=== PATIENT | female | born 2000 | race Caucasian/White ===

== ENCOUNTER 2023-09-30 23:36 | Emergency (ER) | payer OTHER ==
[2023-09-30 23:41] VITALS: BP 130/80; O2SAT 98
[2023-09-30 23:57] LABS: BILIRUBIN,URINE NEGATIVE (NEGATIVE); GLUCOSE, URINE (UA) NEGATIVE (NEGATIVE); KETONES,URINE (UA) NEGATIVE (NEGATIVE); LEUKOCYTE ESTERASE, URINE SMALL (NEGATIVE); NITRITE,URINE NEGATIVE (NEGATIVE); OCCULT BLOOD,URINE LARGE (NEGATIVE); PROTEIN,URINE 100 mg/dL (NEGATIVE); UROBILINOGEN,URINE 0.2 (NORMAL) E.U./dL (NORMAL)
[2023-09-30 23:59] LABS: CLARITY,URINE CLOUDY (CLEAR); HCG UR QUAL NEGATIVE
[2023-10-01] LABS: BACTERIA,URINE Rare /HPF (None Seen); RBC,URINE TNTC /HPF (0-5); SQUAMOUS EPITHELIAL CELL,UR NONE SEEN (<= Few)
--- NOTE | 2023-10-01 00:22 | ED Physician Documentation ---
PD HPI FEMALE - Stated complaint Stated Complaint: - Chief complaint Chief Complaint: UTI - History obtained from History obtained from: Patient - Additional information Additional information: HPI from patient. Patient complains of sudden onset of hematuria approximately 2 hours [employer]. This is associated with dysuria, urinary urgency, and sensation of incomplete voiding. Denies fever, back pain. Denies history of similar symptoms. Patient says she has not had UTIs in the past. She is not currently menstruating. 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 : None HEENT: None Psych: None Musculoskeletal: None Derm: None - Past Surgical History Past Surgical History: No - Present Medications Home Medications: Ambulatory Orders Medication Instructions Recorded Confirmed Nitrofurantoin [Macrobid] 100 mg PO BID #10 cap 10/01/23 Phenazopyridine HCl [Pyridium] 200 mg PO TID PRN #6 tablet 10/01/23 - Allergies Allergies/Adverse Reactions: Allergies Allergy/AdvReac Type Severity Reaction Status Date / Time No Known Drug Allergies Allergy Verified 09/30/23 23:39 - Social History Does the pt smoke?: No Smoking Status: Never smoker Does the pt drink ETOH?: No Does the pt have substance abuse?: No - Immunizations Immunizations are current?: Yes - POLST Patient has POLST: No PD ED PE NORMAL - Vitals Vital signs reviewed: Yes - General General: Alert and oriented X 3, No acute distress, Well developed/nourished - Abdomen Abdomen: Soft, Non tender - Back Back: No CVA TTP Results - Vitals Vitals: Vital Signs - 24 hr 09/30/23 23:39 Temperature 36.5 C Heart Rate 81 Respiratory 16 Rate Blood Pressure 130/80 O2 Saturation 98 Oxygen O2 Source Room air - Labs Labs: Laboratory Tests 09/30/23 23:45 Urine Color RED/BLOODY Urine Clarity CLOUDY Urine pH 7.0 Ur Specific Thompson 1.015 Urine Protein 100 H Urine Glucose (UA) NEGATIVE Urine Ketones NEGATIVE Urine Occult Blood LARGE H Urine Nitrite NEGATIVE Urine Bilirubin NEGATIVE Urine Urobilinogen 0.2 (NORMAL) Ur Leukocyte Esterase SMALL H Urine RBC TNTC H Urine WBC 6-10 H Ur Squamous Epith Cells NONE SEEN Urine Bacteria Rare Ur Microscopic Review INDICATED Urine Culture Comments INDICATED Urine HCG, Qual NEGATIVE PD Medical Decision Making - ED course Complexity details: considered differential, d/w patient ED course: Urine hCG negative. Results of urinalysis are consistent with UTI, although there are significantly more red blood cells than white blood cells. She is not experiencing pain in either flank, nor any other pain complaints that would support renal colic. Furthermore, she describes several symptoms that are consistent with cystitis. Thus, will treat as hemorrhagic cystitis with Macrobid (first dose in the emergency department with prescription for a 5-day course of same). She is also given a dose of Pyridium in the emergency department and provided prescription for a 2-day course of Pyridium. UA results and diagnosis d/w patient and return precautions reviewed Departure - Departure Disposition: 01 Home, Self Care Clinical Impression: Urinary tract infection Condition: Good Instructions: ED UTI Cystitis Female Prescriptions: Nitrofurantoin [Macrobid] 100 mg PO BID #10 cap Phenazopyridine HCl [Pyridium] 200 mg PO TID PRN #6 tablet PRN Reason: dysuria Comments: The results of your urinalysis are suggestive of a urinary tract infection. For this, you were given the first dose of an antibiotic (nitrofurantoin) in the emergency department, and I have electronically submitted a prescription for a 5-day course of this antibiotic to the [facility] pharmacy in [place]. You were also given a dose of Pyridium in the ER, and I have prescribed a 2-day course of this medication. Pyridium can help reduce the symptoms of urinary tract infection (urinary discomfort, frequency, and sensation of incomplete voiding). Limit the use of the Pyridium to just 2 days, as the symptoms should significantly improve within no more than 48 hours into the antibiotic course and, at that point, you do not want to further mask the symptoms with the Pyridium. If your symptoms have not significantly improved after 2 to 3 days of the antibiotic, seek follow-up with your primary care provider.
[2023-10-01] MEDS: PHENAZOPYRIDINE 100 MG TABLET PO STA (00:48)
[2023-10-01] MEDS: NITROFURANTOIN MACRO 100 MG CAPSULE PO STA (00:48)
== END 2023-10-01 00:52 | disposition home or self-care (01) ==
LOC: ED 23:36
DX: N39.0 Urinary tract infection, site not specified (principal); R31.0 Gross hematuria
CPT/HCPCS: 81001; 81025; 87086; 87181; 99283; A9270; 81003